=== PATIENT | male | born 1975 ===

== ENCOUNTER 2020-12-03 21:30 | Inpatient (IN) | payer MEDICAID, OTHER ==
--- NOTE | 2020-12-03 22:20 | ED ---
Psych HPI - General Chief Complaint: Psychiatric Symptoms Stated Complaint: Mental Health Time Seen by Provider: 12/03/20 21:31 Source: patient, EMS, RN notes reviewed, old records reviewed Mode of arrival: EMS Limitations: no limitations - History of Present Illness Initial Comments: This is a 45-year-old male to the emergency room today. Patient Dese for evaluation of psychiatric illness. Patient is presenting under petition by family for inappropriate behavior, patient is difficult to ascertain questions from here in the emergency room. History obtained from patient's chart MD Complaint: altered mental status -: unknown Associated Psychiatric Symptoms: racing thoughts, auditory hallucinations Quality: getting worse Improves With: none Worsens With: none Context: significant life stressor Associated Symptoms: denies other symptoms Treatments Prior to Arrival: placed on mental health hold - Related Data Home Medications Medication Instructions Recorded Confirmed Ergocalciferol [Vitamin D2 (1250 1,250 mcg PO Q7D 12/03/20 12/03/20 Mcg = [id number] Iu)] Haloperidol Decanoate [Haldol D] 200 mg INJ Q28D 12/03/20 12/03/20 OLANZapine 15 mg PO HS 12/03/20 12/03/20 OLANZapine [ZyPREXA] 2.5 mg PO DAILY PRN 12/03/20 12/03/20 Zolpidem Tartrate [Ambien] 5 mg PO HS 12/03/20 12/03/20 Allergies Allergy/AdvReac Type Severity Reaction Status Date / Time No Known Allergies Allergy Verified 12/03/20 22:55 Review of Systems ROS Statement: Those systems with pertinent positive or pertinent negative responses have been documented in the HPI. ROS Other: All systems not noted in ROS Statement are negative. Past Medical History Additional Past Surgical History / Comment(s): Right foot. Smoking Status: Current every day smoker Past Alcohol Use History: Occasional Past Drug Use History: None Reported General Exam General appearance: alert, in no apparent distress Head exam: Present: atraumatic, normocephalic, normal inspection Eye exam: Present: normal appearance, PERRL, EOMI. Absent: scleral icterus, conjunctival injection, periorbital swelling ENT exam: Present: normal exam, mucous membranes moist Neck exam: Present: normal inspection. Absent: tenderness, meningismus, lymphadenopathy Respiratory exam: Present: normal lung sounds bilaterally. Absent: respiratory distress, wheezes, rales, rhonchi, stridor Cardiovascular Exam: Present: regular rate, normal rhythm, normal heart sounds. Absent: systolic murmur, diastolic murmur, rubs, gallop, clicks GI/Abdominal exam: Present: soft, normal bowel sounds. Absent: distended, tenderness, guarding, rebound, rigid Extremities exam: Present: normal inspection, full ROM, normal capillary refill. Absent: tenderness, pedal edema, joint swelling, calf tenderness Back exam: Present: normal inspection Neurological exam: Present: alert, oriented X3, CN II-XII intact Psychiatric exam: Present: normal affect, normal mood Skin exam: Present: warm, dry, intact, normal color. Absent: rash Course Vital Signs 12/03/20 21:37 Temperature 98.6 F Pulse Rate 96 Respiratory 20 Rate Blood Pressure 112/80 O2 Sat by Pulse 93 L Oximetry - Reevaluation(s) Reevaluation #1: 12/03/20 22:19 Medical record is reviewed Reevaluation #2: 12/03/20 22:20 Medically clear for psychiatric evaluation Medical Decision Making - Medical Decision Making 45 male under petition seen and evaluate psychiatry here in the ER, patient will be admitted for psychiatric evaluation and treatment Disposition Clinical Impression: Acute psychosis Disposition: TRANSFER TO PSYCH HOSP/UNIT Condition: Fair Is patient prescribed a controlled substance at d/c from ED?: No Referrals: None,Stated [Primary Care Provider] - 1-2 days
[2020-12-04 03:12] LABS: Amphetamine Screen,Urine Not Detected (NotDetected); Barbiturate Screen,Urine Not Detected (NotDetected); Benzodiazepines Screen,Urine Not Detected (NotDetected); Cocaine Screen,Urine Not Detected (NotDetected); Methadone Screen, Urine Not Detected (NotDetected); Opiate Screen,Urine Not Detected (NotDetected); Oxycodone Screen, Urine Not Detected (NotDetected); Phencyclidine Screen,Urine Not Detected (NotDetected); Tricyclic Antidepressant,Urine Not Detected (NotDetected); Urn Cannabinoid Scrn Not Detected (NotDetected)
[2020-12-04] MEDS ORDERED: MAG HYDROX/AL HYDROX/SIMETH 30 ML CUP PO PRN (03:34)
[2020-12-04] MEDS ORDERED: MAGNESIUM HYDROXIDE 2,400 MG/10 ML CUP PO PRN (03:34)
[2020-12-04] MEDS ORDERED: LORazepam 1 MG TAB PO PRN (03:34)
[2020-12-04] MEDS ORDERED: LORazepam 2 MG/ML INJ IM PRN (03:37)
[2020-12-04] MEDS ORDERED: HALOPERIDOL LACTATE 5 MG/ML 1 ML VIAL IM PRN (03:38)
[2020-12-04] MEDS ORDERED: haloperidoL 5 MG TAB PO PRN (03:38)
[2020-12-04 03:56] LABS: Appearance,Urine Clear (Clear); Bilirubin,Urine Negative (Negative); Blood,Urine Negative (Negative); Color,Urine Yellow; Glucose,Urine (UA) Negative (Negative); Ketones,Urine Negative (Negative); Leukocyte Esterase,Urine Negative (Negative); Nitrite,Urine Negative (Negative); Protein,Urine Negative (Negative); Specific Gravity,Urine 1.017 (1.001-1.035)
--- NOTE | 2020-12-04 04:19 | P.PN ---
Progress Note - Text Progress Note Date: 12/04/20 notified of new consult, patient sleeping at this time. will evaluate when awake
[2020-12-04] MEDS: NICOTINE 14MG/24HR PATCH TRANSDERM SCH (09:18)
[2020-12-04] MEDS: FLUoxetine HCL 20 MG CAP PO SCH (11:41)
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
[2020-12-04] MEDS: OLANZapine 10 MG TAB PO SCH (20:38)
[2020-12-04] MEDS ORDERED: OLANZapine 5 MG TAB PO SCH (21:00)
--- NOTE | 2020-12-05 05:08 | P.PN ---
Progress Note - Text Progress Note Date: 12/05/20 could not evaluate patient as he is currently sleeping , and RN indicated that he is still psychotic and suggested not to wake him up at this time
[2020-12-05] MEDS: FLUoxetine HCL 20 MG CAP PO SCH (08:23)
[2020-12-05] MEDS: NICOTINE 14MG/24HR PATCH TRANSDERM SCH ×2 (08:23→08:57)
--- NOTE | 2020-12-05 09:35 | P.PN ---
Progress Note - Text Progress Note Date: 12/05/20 Interval History: Patient was seen lying in his bed today and was directable and agreeable to whitley waldron with policy writer sales in the office. Patient claims that he is doing "all right". He did not offer any overnight complaints and states that he slept fairly. She claims that he understands that he needs the medications. He was fairly superficial at times when speaking about his symptoms. He is denying any depression today or any anxiety. He states that he feels the Prozac has been helping him. He continues to be fairly concrete and a poverty of content. He asked about when he can call home. At this time patient denies any suicidal or homical ideations, intent or plan. Patient denies any auditory, visual hallucinations. Patient denies any side effects from the medications and has been compliant with meds. Mental Status Exam: General Appearance: Patient appears to be short in stature, overweight, stated age is alert, directable, and attempts to cooperate. Patient appears to have improving hygiene and grooming. Behavior: Patient is seated without any agitated behavior. More cooperative today Speech: Patient's speech is concrete, poverty of content Mood/Affect: Patient reports their mood is improving mildly, affect is congruent and constricted. Suicidality/Homicidality: Patient denies having any homicidal ideation intent or plan. Denies any suicidal ideations intent or plan Perceptions: Patient denies any visual hallucinations and denies any auditory hallucinations Though content/process: [place], poverty of content. Not endorsing paranoia or delusions today. Logical. Memory and concentration: AOX3, grossly intact for the purposes of this session. Can spell "WORLD" backwards Judgment and insight: Chronically poor, improving mildly. Assessment Schizophrenia chronic with acute exacerbation Nicotine dependence Plan: -Patient continues to meet criteria for inpatient psychiatric admission for symptom stabilization and safety. Patient has signed medication consent and was placed in patient's chart. -Medications: Continue with Zyprexa 10 mg daily at bedtime for mood stabilization/psychosis. Continue with Prozac 20 mg daily for mood/anxiety. Patient is currently on Haldol D 200 mg IM every month and receiving this through [facility]. His next dose is due on 12/24/2020. -When necessary Ativan and Haldol for agitation/aggression. -NRT - nicotine patch -SW on board for discharge planning. Encouraged the patient to participate in milieu. Currently awaiting deferral with estate attorney and court date. likely discharge in 1-2 days.
[2020-12-05] MEDS: ACETAMINOPHEN TAB 325 MG TAB PO PRN (18:01)
[2020-12-05] MEDS: OLANZapine 10 MG TAB PO SCH (20:03)
[2020-12-06] MEDS: FLUoxetine HCL 20 MG CAP PO SCH (08:36)
[2020-12-06] MEDS: NICOTINE 14MG/24HR PATCH TRANSDERM SCH (08:36)
--- NOTE | 2020-12-06 08:56 | P.PN ---
Progress Note - Text Progress Note Date: 12/06/20 Interval History: Patient was seen wandering the hallways and was directable and agreeable to whitley waldron with machine sign writer in the office. Patient claims that he is doing "ok" today and did not offer any overnight complaints. He continues to be constricted in his affect and have poverty of content in his thought process. He states that he did not shower yesterday because he did not have clean clothes however we'll attempt to do so today. He asked questions about his discharge and where he will be going. Superintendent Tests spoke to patient about his deferral date today and court hearing. he claims that he understands that he needs the medications. He is denying any depression today or any anxiety. He states that he has not spoken with his family since being in the hospital. He continues to be fairly concrete and a poverty of content. He asked about when he can call home. At this time patient denies any suicidal or homical ideations, intent or plan. Patient denies any auditory, visual hallucinations. Patient denies any side effects from the medications and has been compliant with meds. Mental Status Exam: General Appearance: Patient appears to be short in stature, overweight, stated age is alert, directable, and attempts to cooperate. Patient appears to have improving hygiene and grooming. Behavior: Patient is seated without any agitated behavior. More cooperative today Speech: Patient's speech is concrete, poverty of content Mood/Affect: Patient reports their mood is improving mildly, affect is congruent and constricted. Suicidality/Homicidality: Patient denies having any homicidal ideation intent or plan. Denies any suicidal ideations intent or plan Perceptions: Patient denies any visual hallucinations and denies any auditory hallucinations Though content/process: [place], poverty of content. Not endorsing paranoia or delusions today. Logical. Memory and concentration: AOX3, grossly intact for the purposes of this session. Can spell "WORLD" backwards Judgment and insight: Chronically poor, improving mildly. Assessment Schizophrenia chronic with acute exacerbation Nicotine dependence Plan: -Patient continues to meet criteria for inpatient psychiatric admission for symptom stabilization and safety. Patient has signed medication consent and was placed in patient's chart. -Medications: Continue with Zyprexa 10 mg daily at bedtime for mood stabilization/psychosis. Continue with Prozac 20 mg daily for mood/anxiety. Patient is currently on Haldol D 200 mg IM every month and receiving this through [facility]. His next dose is due on 12/24/2020. -When necessary Ativan and Haldol for agitation/aggression. -NRT - nicotine patch - on board for discharge planning. Encouraged the patient to participate in milieu. Currently awaiting deferral with deputy county attorney and court date. likely discharge Wednesday if patient does well over the weekend. [facility] looking into afc/residential for patient upon discharge
[2020-12-06] MEDS: ACETAMINOPHEN TAB 325 MG TAB PO PRN (17:40)
[2020-12-06] MEDS: OLANZapine 10 MG TAB PO SCH (21:14)
[2020-12-07] MEDS: NICOTINE 14MG/24HR PATCH TRANSDERM SCH (08:29)
[2020-12-07] MEDS: FLUoxetine HCL 20 MG CAP PO SCH (08:29)
[2020-12-07] MEDS: ACETAMINOPHEN TAB 325 MG TAB PO PRN (17:34)
[2020-12-07] MEDS: OLANZapine 10 MG TAB PO SCH (20:29)
--- NOTE | 2020-12-08 01:11 | P.PN ---
Progress Note - Text Progress Note Date: 12/07/20 Subjective: Patient was seen today as a cross coverage for Dr. Smyth. The patient was evaluated, chart reviewed, case discussed with the treatment team. Patient reports good sleep last night, and appetite was reported as "great". Patient has been going to groups and other unit activities. The patient is compliant with his medications and denies any adverse reactions. Patient reports feeling stable emotionally and denies any symptoms of depression, anxiety or mood swings. Denies feeling hopeless, worthless or suicidal. No report of anxiety, agitation, irritability or other mood symptoms. Denies any manic symptoms, PI, hallucinations or delusions. Reports feeling ready to go back home. Objective: Vitals has been reviewed. Mental status examination. Appearance: The patient appears older than, groomed, average body built, no specific features. Gait/posture: Normal gait, Normal arm swinging: No abnormal movements. Attitude and behavior: engaged, fully cooperative, fair eye contact. Motor activity: normal psychomotor activity Speech: normal rate, rhythm and articulation Mood: "fine" Affect: normal and congruent to mood. Thought form: linear and goal directed Thought content: Denies delusional, no suicidal thoughts, no homicidal thoughts, no intentions or plans. Perception: Denies any hallucinations Attention: No impairment. Orientation: Oriented to time, person, place and situation Insight: Patient has fair insight about his psychiatric disorder. Judgment: Patient has fair judgment about his psychiatric treatment. Assessment: Schizophrenia chronic with acute exacerbation Nicotine dependence Plan: Continue inpatient level of care for further monitoring and stabilization, and he still meets criteria for inpatient psychiatric hospitalization. Precautions: Continue 15 minutes check for safety. Consider medical consultation if any acute medical issues arise. Provide the patient individual, group therapy, substance use disorder counseling to give better insight and learn coping skills. Medications: Continue Zyprexa 10 mg at bedtime for psychotic symptoms, Prozac 20 mg daily for depression and anxiety, and Haldol Dec 200 mg IM/ m next dose due 12/24 for psychotic symptoms. Continue NRT Continue as needed medications for psychiatric emergencies including psychosis, agitation and anxiety. Continue non-psychiatric medications for medical conditions as recommended by the medical team. Discharge patient to OUTPATIENT services upon a stabilization
[2020-12-08 07:26] VITALS: TEMP 98
[2020-12-08] MEDS: NICOTINE 14MG/24HR PATCH TRANSDERM SCH (08:05)
[2020-12-08] MEDS: FLUoxetine HCL 20 MG CAP PO SCH (08:05)
[2020-12-08] MEDS: OLANZapine 10 MG TAB PO SCH (20:09)
--- NOTE | 2020-12-08 23:52 | P.PN ---
Progress Note - Text Progress Note Date: 12/08/20 Subjective: Patient was seen today as a cross coverage for Dr. Smyth. The patient was evaluated, chart reviewed, case discussed with the treatment team. Patient continued to report feeling stable emotionally and denies any current symptoms of depression, anxiety, mood swings, irritability, or agitation. No reports of behavioral problems, and the patient continued to attend groups/other unit activities. Patient continued to take his psych medications and no side effects reported. No report of hallucinations, paranoid ideation, delusions, or manic symptoms. Objective: Vitals has been reviewed. Mental status examination. Appearance: The patient appears older than, groomed, average body built, no specific features. Gait/posture: Normal gait, Normal arm swinging: No abnormal movements. Attitude and behavior: engaged, fully cooperative, fair eye contact. Motor activity: normal psychomotor activity Speech: normal rate, rhythm and articulation Mood: "fine" Affect: normal and congruent to mood. Thought form: linear and goal directed Thought content: Denies delusional, no suicidal thoughts, no homicidal thoughts, no intentions or plans. Perception: Denies any hallucinations Attention: No impairment. Orientation: Oriented to time, person, place and situation Insight: Patient has fair insight about his psychiatric disorder. Judgment: Patient has fair judgment about his psychiatric treatment. Assessment: Schizophrenia chronic with acute exacerbation Nicotine dependence Plan: Continue inpatient level of care for further monitoring and stabilization, and he still meets criteria for inpatient psychiatric hospitalization. Precautions: Continue 15 minutes check for safety. Consider medical consultation if any acute medical issues arise. Provide the patient individual, group therapy, substance use disorder counseling to give better insight and learn coping skills. Medications: Continue Zyprexa 10 mg at bedtime for psychotic symptoms, Prozac 20 mg daily for depression and anxiety, and Haldol Dec 200 mg IM/ m next dose due 12/24 for psychotic symptoms. Continue NRT Continue as needed medications for psychiatric emergencies including psychosis, agitation and anxiety. Continue non-psychiatric medications for medical conditions as recommended by the medical team. Discharge patient to OUTPATIENT services upon a stabilization
[2020-12-09 07:06] VITALS: BP 136/81; PULSE 61; RESP 18
[2020-12-09] MEDS: FLUoxetine HCL 20 MG CAP PO SCH (08:16)
[2020-12-09] MEDS: NICOTINE 14MG/24HR PATCH TRANSDERM SCH (08:17)
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
== END 2020-12-09 18:23 | disposition home or self-care (01) | DRG 885 ==
LOC: EC 21:30 → EEVIPCON 12-04 03:27 → 3MHU 12-04 03:27
PROVIDERS: ADMIT Psychiatry & Neurology Psychiatry; ATTEND Psychiatry & Neurology Psychiatry
DX: F20.9 Schizophrenia, unspecified (principal); E66.3 Overweight; Z20.822 Contact with and (suspected) exposure to COVID-19; F41.9 Anxiety disorder, unspecified; G47.00 Insomnia, unspecified; Z68.34 Body mass index [BMI] 34.0-34.9, adult; F17.210 Nicotine dependence, cigarettes, uncomplicated; Z71.6 Tobacco abuse counseling; Z56.0 Unemployment, unspecified; Z79.899 Other long term (current) drug therapy; Z87.39 Personal history of other diseases of the musculoskeletal system and connective tissue; Z98.890 Other specified postprocedural states; Z81.8 Family history of other mental and behavioral disorders
CPT/HCPCS: 80306; 81003; 87635; 99285